=== PATIENT | female | born 1985 | race Native Hawaiian/Other Pacific Islander ===

== ENCOUNTER 2018-11-14 11:48 | Emergency (ER) | payer OTHER ==
[~2018-11-14] VITALS: Ht 157.5 cm; Wt 81.6 kg
[2018-11-14 11:55] VITALS: BP 123/75; TEMP 98.2
== END 2018-11-14 14:13 | disposition home or self-care (01) ==
LOC: ED 11:48
DX: M25.531 Pain in right wrist (principal)
CPT/HCPCS: 99281